=== PATIENT | male | born 1945 | race Caucasian/White ===

== ENCOUNTER 2016-10-19 05:41 | Inpatient (IN) | payer OTHER ==
[~2016-10-19] VITALS: Ht 188 cm; Wt 130.2 kg
[2016-10-19] MEDS ORDERED: FURO-149 PO (06:45)
[2016-10-19] MEDS ORDERED: LISI-600 PO (06:45)
[2016-10-19] MEDS ORDERED: VITD2000 PO (06:45)
[2016-10-19] MEDS ORDERED: RANI-362 PO (06:45)
[2016-10-19] MEDS ORDERED: CEFAZOLIN SOD 1 GM/ ISO 50 ML PREMIX IV ONE (07:00)
[2016-10-19] MEDS ORDERED: ONDANSETRON HCL 4 MG/2 ML VIAL IVP ONE (07:01)
[2016-10-19] MEDS ORDERED: METOPROLOL TARTRATE 5 MG/5 ML VIAL IVP ONE (07:01)
[2016-10-19] MEDS ORDERED: KETOROLAC TROMETHAMINE 30 MG VIAL IVP ONE (07:01)
[2016-10-19] MEDS ORDERED: SEVOFLURANE 15 MIN GAS INH ONE (07:01)
[2016-10-19] MEDS ORDERED: MIDAZOLAM HCL 5 MG/5 ML VIAL IVP ONE (07:01)
[2016-10-19] MEDS ORDERED: TRANEXAMIC ACID 1,000 MG/10 ML VIAL IV ONE (07:01)
[2016-10-19] MEDS ORDERED: PROPOFOL 200MG/ 20ML VIAL (DIPRIVAN) IV ONE (07:01)
[2016-10-19] MEDS ORDERED: LIDOCAINE 2%, 20 ML MDV INJ ONE (07:01)
[2016-10-19] MEDS ORDERED: ROPIVACAINE 40 MG/20 ML AMP EP ONE (07:01)
[2016-10-19] MEDS ORDERED: fentaNYL CITRATE/PF 100 MCG/2 ML AMP IVP ONE (07:01)
[2016-10-19] MEDS ORDERED: NS 100 ML BAG IV ONE (07:01)
[2016-10-19] MEDS ORDERED: LR 1,000 ML IV.SOLN IV ONE (07:01)
[2016-10-19] MEDS ORDERED: POLYMYXIN 500,000/BACIT.10,000 UNITS in NS IRR 1 L IR ONE (07:14)
[2016-10-19] MEDS ORDERED: LR 1,000 ML IV SCH (07:41)
[2016-10-19] MEDS ORDERED: NALBUPHINE HCL 10 MG/ML AMP IVP PRN (07:45)
[2016-10-19] MEDS ORDERED: HYDROmorphone 2 MG/ML VIAL IVP PRN ×2 (07:45)
[2016-10-19] MEDS ORDERED: MEPERIDINE HCL/PF 25 MG/ML DISP.SYRIN IVP PRN ×2 (07:45)
[2016-10-19] MEDS ORDERED: HYDROmorphone 1 MG INJ. 1 MG/ML AMPUL IVP PRN ×2 (07:45)
[2016-10-19] MEDS ORDERED: ONDANSETRON HCL 4 MG/2 ML VIAL IVP PRN ×2 (07:45)
[2016-10-19] MEDS ORDERED: DIPHENHYDRAMINE INJ 50 MG/ML VIAL IVP PRN (07:45)
[2016-10-19] MEDS ORDERED: ROPIVACAINE 0.2% 100 ML ONE ×2 (08:07→09:36)
[2016-10-19] MEDS ORDERED: D5/0.45 NS 1,000 ML IV ONE (09:12)
[2016-10-19] MEDS ORDERED: BISACODYL 10 MG/SUPPOSITORY RC PRN (09:15)
[2016-10-19] MEDS ORDERED: MORPHINE SULFATE 10 MG/ML VIAL IM PRN (09:15)
[2016-10-19] MEDS ORDERED: HYDROcodone/ACETAMIN 7.5-325 MG TAB PO PRN (09:15)
[2016-10-19] MEDS ORDERED: HYDROmorphone 2 MG/ML VIAL ONE (09:45)
[2016-10-19 10:25] VITALS: BP 122/74; PULSE 48; RESP 16; TEMP 98.6; O2SAT 98
--- NOTE | 2016-10-19 10:25 | NUR ---
Initial Note Received pt in bed, no s/s of distress or sob noted, pt has pain, 7/10, senior production planner started by recovery nurse and witnessed by nurse, at prescribed settings. Pt has a naropin as ordered, continuous nerve block. Pt aaox4, verbal, drowsy but easily aroused. Pt able to move toes on left foot, sensation present, capillary refill less than 3 seconds, pulse palpable, no paralysis or tingling per pt, dressing on left knee clean and dry, intact. Pt has polar care in place, elpidio for bed mobility. Educated pt on use of incentive spirometer, pt to use 10 times an hour while awake, pt verbalized understanding, pt at 2000ml. Bed at lowest position, call light within, will continue to monitor pt for any changes. Fall precautions in place.
[2016-10-19 10:30] VITALS: BP 122/74; PULSE 53; RESP 19; TEMP 97.4; O2SAT 96
--- NOTE | 2016-10-19 11:06 | NUR ---
CONSULTATION: REASON FOR CONSULT: MEDICAL CUSTOMER SUPPLY COORDINATOR PHYSICIAN: MAYRA THORNE MD ORDERED BY: KEVIN PAGE MD SPOKE WITH HOSEA
[2016-10-19] MEDS ORDERED: NALOXONE HCL 0.4 MG/ML AMP (NARCAN) IVP PRN (11:30)
--- NOTE | 2016-10-19 12:55 | NUR ---
ROUNDS Pt in bed, no s/s of distress or sob noted, pt has no c/o pain at this time, pt in stable condition, pt resting comfortably, will continue to monitor pt for any changes.
[2016-10-19] MEDS ORDERED: FAMOTIDINE 20 MG TABLET PO ONE (13:00)
[2016-10-19] MEDS: CEFAZOLIN 1 GM IVPB PREMIX 50 ML IV SCH ×2 (13:14→20:58)
--- NOTE | 2016-10-19 14:25 | NUR ---
Neurovascular Check Pt able to move toes on left foot, sensation present, capillary refill less than 3 seconds, pulse palpable, no paralysis or tingling per pt, dressing on left knee clean and dry, intact.
[2016-10-19 15:37] VITALS: BP 121/72; PULSE 79; RESP 17; TEMP 99; O2SAT 97
[2016-10-19 16:35] VITALS: TEMP 98.2
--- NOTE | 2016-10-19 18:38 | NUR ---
Closing Note Pt in bed, no s/s of distress or sob noted, pt has no c/o pain, paper tube cutter at prescribed settings. Pt has a naropin as ordered, continuous nerve block. Pt aaox4, verbal. Pt able to move toes on left foot, sensation present, capillary refill less than 3 seconds, pulse palpable, no paralysis or tingling per pt, dressing on left knee clean and dry, intact. Pt has polar care in place, trapeze for bed mobility. Bed at lowest position, call light within, will endorse care of pt to incoming nurse. Fall precautions in place. F/C draining via gravity. Pt has a hemovac on left knee to suction.
--- NOTE | 2016-10-19 19:23 | NUR ---
Initial Note Patient in bed at this time resting, respirations even and unlabored. is at the bedside. Patient denies any pain or discomfort at this time. No acute distress noted at this time. Nuero check done on left lower extremity, WNL. Capillary refill WNL. Denies any numbness or tingling. Patient is alert and oriented. Educated patient on incentive spirometer, patient able to show proper demonstration. Educated on using as least ten times per hour while awake, verbalized understanding. Fall and safety precautions in place. Call light in hand. Will continue to monitor.
[2016-10-19 20:31] VITALS: BP 128/86; PULSE 80; RESP 18; TEMP 99.1; O2SAT 98
[2016-10-19] MEDS: ROPIVACAINE 0.2% 100 ML INJ SCH (20:59)
--- NOTE | 2016-10-19 22:05 | NUR ---
RN ROUNDS Patient in bed at this time resting, respirations even and unlabored. Patient states that pain is being well controlled with SHODDY MILL WORKER. Call light in hand, fall and safety precautions in place. Will continue to monitor.
--- NOTE | 2016-10-20 00:45 | NUR ---
RN ROUNDS Patient in bed at this time resting, respirations even and unlabored. No acute distress noted at this time. Patient states pain is being well controlled with TAX SERVICES PROFESSIONAL pump. Call light in hand. Fall and safety precautions in place. Will continue to monitor. Addendum: 10/20/16 at 0046 by Karena Landis RN Nuero check done on left lower extremity, WNL. Capillary refill WNL. Denies any numbness or tingling.
[2016-10-20 00:49] VITALS: BP 126/61; PULSE 63; RESP 17; TEMP 98.3; O2SAT 97
--- NOTE | 2016-10-20 02:28 | NUR ---
RN ROUNDS Patient in bed at this time resting, respirations even and unlabored. No acute distress noted at this time. Changed ICE in polar care Patient denies any pain or discomfort at this time. Call light in hand. Fall and safety precautions in place. Will continue to monitor.
--- NOTE | 2016-10-20 04:25 | NUR ---
RN ROUNDS Patient in bed at this time resting, respirations even and unlabored. No acute distress noted at this time.Patient in no apparent pain or discomfort at this time. Call light in hand. Fall and safety precautions in place. Will continue to monitor.
[2016-10-20 05:02] VITALS: BP 140/71; PULSE 67; RESP 17; TEMP 98.1; O2SAT 100
--- NOTE | 2016-10-20 06:32 | NUR ---
Closing Note Patient in bed at this time resting, patient denies any pain or discomfort at this time. Neuro check done and WNL. Denies any numbness or tingling. All due meds given, all needs met. Call light in hand. Fall and safety precautions in place. Will endorse to day shift nurse.
[2016-10-20 06:48] LABS: BASOPHILS # (AUTO) 0.3 K/uL (0.0-0.2); BASOPHILS % (AUTO) 1.6 % (0.0-2.0); EOSINOPHILS % (AUTO) 0.2 % (0.0-4.0); HEMATOCRIT 37.2 % (36-54); HEMOGLOBIN 12.5 g/dL (14.0-18.0); LYMPHOCYTES # (AUTO) 1.6 K/uL (1.0-5.5); MEAN CORPUSCULAR HEMOGLOBIN 32 pg (27-31); MEAN CORPUSCULAR HGB CONC 34 % (32-36); MEAN CORPUSCULAR VOLUME 96 fL (79.0-98.0); MONOCYTES # (AUTO) 1.6 K/uL (0.0-1.0); MONOCYTES % (AUTO) 9.9 % (1.7-9.3); NEUTROPHILS # (AUTO) 12.9 K/uL (1.8-7.7); NEUTROPHILS % (AUTO) 78.3 % (40.0-70.0); PLATELET COUNT (AUTO) 201 K/uL (130-430); RED BLOOD CELL COUNT(AUTO) 3.86 MIL/uL (4.2-6.2); RED CELL DISTRIBUTION WIDTH 12.8 % (9.0-15.0); WHITE BLOOD COUNT (AUTO) 16.4 K/uL (4.8-10.8)
[2016-10-20 06:59] LABS: ALBUMIN 3.1 g/dL (3.4-4.8); CALCIUM 8.4 mg/dL (8.4-11.0); CREATININE 1.2 mg/dL (0.55-1.30); POTASSIUM 4.3 mmol/L (3.5-5.1); TOTAL BILIRUBIN 0.4 mg/dL (0.0-1.0); TOTAL PROTEIN, SERUM 6.4 g/dL (6.4-8.3)
[2016-10-20 07:19] VITALS: BP 145/77; PULSE 62; RESP 17; TEMP 98.6; O2SAT 99
--- NOTE | 2016-10-20 07:19 | NUR ---
Initial Note Received pt in bed, no s/s of distress or sob noted, pt has a section crews activities clerk at prescribed settings. Pt has a naropin as ordered, continuous nerve block. Pt aaox4, verbal. Pt able to move toes on left foot, sensation present, capillary refill less than 3 seconds, pulse palpable, no paralysis or tingling per pt, dressing on left knee clean and dry, intact. Pt has polar care in place, trapeze for bed mobility. Educated pt on use of incentive spirometer, pt to use 10 times an hour while awake, pt verbalized understanding, pt at 2000ml. Bed at lowest position, call light within, will continue to monitor pt for any changes. Fall precautions in place.
[2016-10-20] MEDS: FAMOTIDINE 20 MG TABLET PO SCH (08:35)
[2016-10-20] MEDS: RIVAROXABAN 10 MG TABLET PO SCH (08:35)
[2016-10-20] MEDS: FUROSEMIDE 40 MG TABLET PO SCH (08:35)
[2016-10-20] MEDS: LISINOPRIL 20 MG TABLET PO SCH (08:36)
[2016-10-20] MEDS ORDERED: NON-FORMULARY MEDICATION (Ranitidine Hcl (Acid Reducer 150) 1 TAB) PO SCH (09:00)
--- NOTE | 2016-10-20 09:04 | NUR ---
Nutrition Update Kamari Scale 17 noted. Pt admitted for unilateral primary osteoarthritis, L knee. Diet: regular BMI: 36.8 kg/m2 RD to follow per nutrition care standards.
[2016-10-20] MEDS: ROPIVACAINE 0.2% 100 ML INJ SCH (09:48)
[2016-10-20] MEDS: HYDROMORPHONE PCA 10 mg/50 mL IV PRN (09:51)
--- NOTE | 2016-10-20 10:08 | NUR ---
ROUNDS Pt sitting up in chair, no s/s of distress or sob noted, pt has no c/o pain at this time, pt in stable condition, pt talking to at bedside, will continue to monitor pt for any changes.
[2016-10-20 11:25] VITALS: BP 127/72; PULSE 79; RESP 19; TEMP 98.4; O2SAT 96
--- NOTE | 2016-10-20 12:55 | NUR ---
ROUNDS Pt laying in bed, no s/s of distress or sob noted, pt has no c/o pain at this time, pt in stable condition, pt talking to at bedside, will continue to monitor pt for any changes.
--- NOTE | 2016-10-20 14:25 | NUR ---
ROUNDS Pt laying in bed, no s/s of distress or sob noted, pt has no c/o pain at this time, pt in stable condition, pt resting comfortably, will continue to monitor pt for any changes.
[2016-10-20 15:20] VITALS: BP 146/97; PULSE 101; RESP 19; TEMP 97.2; O2SAT 93
--- NOTE | 2016-10-20 18:04 | NUR ---
Closing Note Pt in bed, no s/s of distress or sob noted, pt has no c/o pain, licensed bondsman at prescribed settings. Pt has a naropin as ordered, continuous nerve block. Pt aaox4, verbal. Pt able to move toes on left foot, sensation present, capillary refill less than 3 seconds, pulse palpable, no paralysis or tingling per pt, dressing on left knee clean and dry, intact. Pt has polar care in place, trapeze for bed mobility. Bed at lowest position, call light within, will endorse care of pt to incoming nurse. Fall precautions in place. F/C draining via gravity. Pt has CMP and to be removed at 1030 pm.
--- NOTE | 2016-10-20 19:34 | NUR ---
PM ASSESSMENT PT. A/OX4, VITAL SIGNS STABLE, NO DISTRESS NOTED, DENIES PAIN, NOTED WITH LEFT LOWER EXTREMITY IN CPM MACHINE WITH [facility], UPDATED WITH PLAN OF CARE, ENCOURAGED PT. TO USE CALL LIGHT FOR ASSISTANCE, CALL LIGHT WITHIN REACH, WILL CONTINUE TO MONITOR.
[2016-10-20 19:35] VITALS: BP 146/72; PULSE 101; RESP 18; TEMP 99; O2SAT 97
--- NOTE | 2016-10-20 20:00 | NUR ---
NEURO CHECKS BILATERAL PEDAL PULSES PRESENT, PT. ABLE TO WIGGLE TOES, PT. ABLE TO FLEX AND EXTEND FEET BILATERALLY, DENIES NUMBNESS OR TINGLING. WILL CONTINUE TO MONITOR.
--- NOTE | 2016-10-20 20:30 | NUR ---
INCENTIVE SPIROMETER PT. ABLE TO DEMONSTRATE PROPER USE OF INCENTIVE SPIROMETER, UP TO 3000 ML. INSTRUCTED PT. TO USE I.S. 10X/HR WHILE AWAKE, PT. VERBALIZED UNDERSTANDING.
[2016-10-20] MEDS: ACETAMINOPHEN 325 MG TABLET PO PRN (21:31)
--- NOTE | 2016-10-20 21:31 | NUR ---
FEVER TEMP IS 100.0, TYLENOL 650 MG PO GIVEN, COOLING MEASURES TAKEN. WILL CONTINUE TO MONITOR.
--- NOTE | 2016-10-20 22:00 | NUR ---
GREENKEEPER DILAUDID PT. C/O SEVERE PAIN RATED "10/10", INSTRUCTED PT. TO PRESS GREENKEEPER BUTTON FOR PAIN MEDICATION, PT. STATED, HE DID NOT UNDERSTAND HOW TO USE GREENKEEPER DILAUDID, RE-EDUCATION PROVIDED, ALSO REMINDED PT. HE IS ON ROPIVICANE AT 8 ML/HR, PT. VERBALIZED UNDERSTANDING.
--- NOTE | 2016-10-20 22:25 | NUR ---
PAIN REASSESSMENT PT. DENIES PAIN AT THIS TIME, AND STATED "I FEEL MUCH BETTER." VITAL SIGNS STABLE, CALL LIGHT WITHIN REACH, WILL CONTINUE TO MONITOR.
--- NOTE | 2016-10-20 22:30 | NUR ---
TEMP REASSESSMENT CURRENT TEMPERATURE IS 98.7, WILL CONTINUE TO MONITOR.
[2016-10-21] VITALS: BP 135/79; PULSE 105; RESP 18; TEMP 99.6; O2SAT 100
--- NOTE | 2016-10-21 | NUR ---
BED CHANCE PT. STATED HE WANTED TO HAVE A BOWEL MOVEMENT, ATTEMPTED TO AMBULATE PT. TO THE BATHROOM WITH WALKER, BUT PT. UNABLE TO TOLERATE ACTIVITY AND STATED HE "FELT DIZZY." ASSISTED BACK INTO BED, BED CHANCE PLACED.
--- NOTE | 2016-10-21 00:30 | NUR ---
RN ROUNDS PT. RESTING QUIETLY, VITAL SIGNS STABLE, NO DISTRESS NOTED, DENIES PAIN. CALL LIGHT WITHIN REACH. WILL CONTINUE TO MONITOR.
[2016-10-21] MEDS: ROPIVACAINE 0.2% 100 ML INJ SCH ×2 (00:37→07:30)
--- NOTE | 2016-10-21 02:00 | NUR ---
RN ROUNDS PT. RESTING QUIETLY, VITAL SIGNS STABLE, NO DISTRESS NOTED, DENIES PAIN. REPOSITIONED WITH PILLOW SUPPORT, CALL LIGHT WITHIN REACH. WILL CONTINUE TO MONITOR.
--- NOTE | 2016-10-21 04:00 | NUR ---
RN ROUNDS PT. RESTING QUIETLY, VITAL SIGNS STABLE, NO DISTRESS NOTED, DENIES PAIN. REPOSITIONED WITH PILLOW SUPPORT, CALL LIGHT WITHIN REACH. WILL CONTINUE TO MONITOR.
[2016-10-21 04:55] VITALS: BP 130/79; PULSE 102; RESP 19; TEMP 99.1; O2SAT 96
--- NOTE | 2016-10-21 06:38 | NUR ---
NOWAK D/C'ED, ATTEMPTED AMBULATION D/C'ED NOWAK CATHETER, NOTED WITH 450 CC YELLOW URINE, PT. STATED HE WANTED TO ATTEMPT TO HAVE A BOWEL MOVEMENT,AND WOULD LIKE TO "TRY TO WALK TO THE BATHROOM", ATTEMPTED TO AMBULATE PT. TO THE BATHROOM WITH WALKER AGAIN, BUT PT. UNABLE TO TOLERATE ACTIVITY DUE TO PAIN. ASSISTED BACK INTO BED, PT. STATED HE "WILL TRY TO HAVE A BOWEL MOVEMENT LATER."
[2016-10-21 06:48] LABS: HEMOGLOBIN 12.3 g/dL (14.0-18.0); MEAN CORPUSCULAR HEMOGLOBIN 33 pg (27-31); MEAN CORPUSCULAR HGB CONC 34 % (32-36); MEAN CORPUSCULAR VOLUME 96 fL (79.0-98.0); PLATELET COUNT (AUTO) 217 K/uL (130-430); RED BLOOD CELL COUNT(AUTO) 3.74 MIL/uL (4.2-6.2); RED CELL DISTRIBUTION WIDTH 13.5 % (9.0-15.0)
--- NOTE | 2016-10-21 07:30 | NUR ---
AM Rounds Patient is awake and alert and oriented x 4. Denies pain at this time. Educated patient on pain management, Assessment complete. Surgical dressing noted on left knee; dry and intact. Educated patient montessori lead teacher light system; patient verbalized understanding. Bed in lowest position, three side rails up; call light within patient's hand. Fall precautions in place.
[2016-10-21 08:00] VITALS: BP 156/75; PULSE 102; RESP 18; TEMP 100; O2SAT 96
[2016-10-21 08:31] LABS: ATYPICAL LYMPHOCYTES % 0 % (0-0); BAND % (MANUAL) 0 % (0-6); BASOPHILS % (MANUAL) 0 % (0-2); EOSINOPHILS % (MANUAL) 0 % (0-7); LYMPHOCYTES % (MANUAL) 9 % (20-46); MONOCYTES % (MANUAL) 10 % (0-11)
--- NOTE | 2016-10-21 08:40 | NUR ---
Medication Medications given to patient' educated patient on potential side effects; patient verbalized understanding. Fall precautions in place.
[2016-10-21] MEDS: LISINOPRIL 20 MG TABLET PO SCH (09:06)
[2016-10-21] MEDS: FUROSEMIDE 40 MG TABLET PO SCH (09:06)
[2016-10-21] MEDS: ACETAMINOPHEN 325 MG TABLET PO PRN ×2 (09:07→20:43)
[2016-10-21] MEDS: FAMOTIDINE 20 MG TABLET PO SCH (09:07)
[2016-10-21] MEDS: RIVAROXABAN 10 MG TABLET PO SCH (09:07)
--- NOTE | 2016-10-21 10:45 | NUR ---
RN ROUNDS Patient is resting in bed; no complaints of pain, no signs of distress, Instructed patient to use call villagran if assistance is needed. Call villagran within reach, bed in low position, side rails up, fall precautions in place. Will continue to monitor
--- NOTE | 2016-10-21 12:00 | NUR ---
RN ROUNDS Patient is currently up with PT; patient tolerated well.
[2016-10-21 12:13] VITALS: BP 120/67; PULSE 56; RESP 19; TEMP 98; O2SAT 100
[2016-10-21] MEDS: cefTRIAXone 1 GM IVPB PREMIX 50 ML IV SCH (13:00)
--- NOTE | 2016-10-21 13:44 | NUR ---
KONSTANTIN NOTIFIED PHARMACY REGARDING 1300 ROCEPHIN FOR THE PATIENT, SPOKE WITH MADELINE, STATED THAT ROCEPHIN NEEDS TO BE MADE, WILL FOLLOW UP.
--- NOTE | 2016-10-21 14:00 | NUR ---
RN ROUNDS Changed patient's tele-monitor batteries. Patient is currently resting in bed; no complaints of pain at this time. Instructed patient to use call light when assistance is needed. Bed in lowest position, side rails up, fall precautions in place. Will continue to monitor patient.
--- NOTE | 2016-10-21 14:56 | NUR ---
HCP/PA: Home Health arranged with [phone]
[2016-10-21 16:28] VITALS: BP 135/72; PULSE 95; RESP 20; TEMP 99.1; O2SAT 98
[2016-10-21] MEDS: HYDROMORPHONE PCA 10 mg/50 mL IV PRN (16:31)
--- NOTE | 2016-10-21 16:38 | NUR ---
RN ROUNDS Patient is currently resting in bed watching TV, is at bedside. Patient is not complaining of any pain, no signs of distress. Bed in lowest position. three side rails up, fall precautions initiated. Will continue to monitor
--- NOTE | 2016-10-21 18:00 | NUR ---
PHYSICAL THERAPY CO-SIGN The Physical Therapy Progress Notes documented by Customer Relations Advisor have been reviewed. I CONCUR WITH AM/PM OWNER NOTE; CONT PER TX PLAN Reviewed/Co-Signed by: Janelle Lucero PT Documentation Done by: FRANSISCO PHILLIPS OWNER Addendum: 10/22/16 at 1534 by Janelle Lucero PT Amended: Links added.
--- NOTE | 2016-10-21 18:29 | NUR ---
CLOSING NOTE Will give report to night nurse nurse. Patient is currently stable, no signs of distress, no complaints of pain. Patient's bed is currently in the lowest position; three side rails up, fall precaution in place, call light next to patient. Informed patient to call if assistance is needed. All needs met.
[2016-10-21 19:45] VITALS: BP 125/66; PULSE 108; RESP 18; TEMP 100; O2SAT 96
--- NOTE | 2016-10-21 19:45 | NUR ---
PM ASSESSMENT PT. A/OX4, TEMP 100.0, TYLENOL 650 MG PO TO BE GIVEN, COOLING MEASURES TAKEN, ENCOURAGED USE OF INCENTIVE SPIROMETER 10X/HR WHILE AWAKE, PT. ABLE TO DEMONSTRATE PROPER USE UP TO 4000 ML. NOTED WITH POLAR CARE TO LEFT LOWER EXTREMITY, LEFT LOWER EXTREMITY SUPPORTED WITH PILLOW. NOTED WITH SCD TO RIGHT LOWER EXTREMITY. UPDATED WITH PLAN OF CARE, ENCOURAGED PT. TO USE CALL LIGHT FOR ASSISTANCE, CALL LIGHT WITHIN REACH.
--- NOTE | 2016-10-21 21:30 | NUR ---
RN ROUNDS TEMP IS 99.1, VITAL SIGNS STABLE, NO DISTRESS NOTED, DENIES PAIN, REPOSITIONED WITH PILLOW SUPPORT, CALL LIGHT WITHIN REACH, WILL CONTINUE TO MONITOR.
--- NOTE | 2016-10-21 22:30 | NUR ---
RN ROUNDS PT. RESTING QUIETLY, VITAL SIGNS STABLE, NO DISTRESS NOTED, DENIES PAIN, CALL LIGHT WITHIN REACH, WILL CONTINUE TO MONITOR.
[2016-10-22 00:12] VITALS: BP 119/54; PULSE 98; RESP 19; TEMP 99.8; O2SAT 97
--- NOTE | 2016-10-22 00:30 | NUR ---
RN ROUNDS PT. RESTING QUIETLY, VITAL SIGNS STABLE, NO DISTRESS NOTED, DENIES PAIN, REPOSITIONED WITH PILLOW SUPPORT, CALL LIGHT WITHIN REACH, WILL CONTINUE TO MONITOR.
--- NOTE | 2016-10-22 02:00 | NUR ---
RN ROUNDS PT. RESTING QUIETLY, VITAL SIGNS STABLE, NO DISTRESS NOTED, DENIES PAIN, REPOSITIONED WITH PILLOW SUPPORT, CALL LIGHT WITHIN REACH, WILL CONTINUE TO MONITOR.
[2016-10-22 04:00] VITALS: BP 133/59; PULSE 91; RESP 18; TEMP 97.6; O2SAT 95
--- NOTE | 2016-10-22 04:00 | NUR ---
RN ROUNDS PT. RESTING QUIETLY, VITAL SIGNS STABLE, NO DISTRESS NOTED, DENIES PAIN, REPOSITIONED WITH PILLOW SUPPORT, CALL LIGHT WITHIN REACH, WILL CONTINUE TO MONITOR.
--- NOTE | 2016-10-22 06:30 | NUR ---
CLOSING NOTES PT. RESTING QUIETLY, VITAL SIGNS STABLE, PT. IS AFEBRILE, TEMPERATURE IS 97.1, NO DISTRESS NOTED, DENIES PAIN, REPOSITIONED WITH PILLOW SUPPORT, CALL LIGHT WITHIN REACH.
[2016-10-22 06:46] LABS: BASOPHILS # (AUTO) 0.2 K/uL (0.0-0.2); BASOPHILS % (AUTO) 1.7 % (0.0-2.0); EOSINOPHILS # (AUTO) 0.1 K/uL (0.0-0.4); HEMATOCRIT 34.1 % (36-54); HEMOGLOBIN 11.5 g/dL (14.0-18.0); LYMPHOCYTES # (AUTO) 1.3 K/uL (1.0-5.5); LYMPHOCYTES % (AUTO) 9.3 % (20.5-51.5); MEAN CORPUSCULAR HEMOGLOBIN 33 pg (27-31); MEAN CORPUSCULAR HGB CONC 34 % (32-36); MEAN CORPUSCULAR VOLUME 96 fL (79.0-98.0); MONOCYTES # (AUTO) 1.5 K/uL (0.0-1.0); NEUTROPHILS # (AUTO) 11.4 K/uL (1.8-7.7); PLATELET COUNT (AUTO) 232 K/uL (130-430); RED BLOOD CELL COUNT(AUTO) 3.54 MIL/uL (4.2-6.2); RED CELL DISTRIBUTION WIDTH 13.7 % (9.0-15.0); WHITE BLOOD COUNT (AUTO) 14.5 K/uL (4.8-10.8)
--- NOTE | 2016-10-22 07:20 | NUR ---
AM ROUNDS: PATIENT ON THE BED.REPORT GIVEN BY FELIX NIGHT NURSE.ON O2 2L/NC,GOOD SATURATION.AWAKE,ALERT AND ORIENTED X3. WITH IVF TKO TOGETHER WITH ORTHOTIC AND PROSTHETIC TECHNICIAN DILAUDID ,SEE MEDITECH FOR DOSAGES. WITH LEFT KNEE DRESSING DRY AND INTACT. NO COMPLAINED MADE. CALL LIGHT WITH IN REACH.NEEDS ATTENDED TO.
--- NOTE | 2016-10-22 08:20 | NUR ---
surgeon rounds: dr austin came,removed the dressing from the left knee,no active bleeding noted,to keep it open to air,if with discharges ,covered it wih 4x4 dressing per surgeon. dc polar care per surgeon.with joseph at left knee intact.
[2016-10-22 08:26] VITALS: BP 145/77; PULSE 109; RESP 20; TEMP 99.2; O2SAT 94
[2016-10-22] MEDS: RIVAROXABAN 10 MG TABLET PO SCH (08:34)
[2016-10-22] MEDS: FAMOTIDINE 20 MG TABLET PO SCH (08:35)
[2016-10-22] MEDS: FUROSEMIDE 40 MG TABLET PO SCH (08:35)
[2016-10-22] MEDS: LISINOPRIL 20 MG TABLET PO SCH (08:35)
--- NOTE | 2016-10-22 10:15 | NUR ---
rounds: sitting on the chair.physical therapist working with the patient.
[2016-10-22 12:02] VITALS: BP 95/58; PULSE 102; RESP 20; TEMP 98.8; O2SAT 94
--- NOTE | 2016-10-22 12:20 | NUR ---
rounds: patient on the bed.cpm on at left knee, off while having lunch. no complained made.
[2016-10-22] MEDS: cefTRIAXone 1 GM IVPB PREMIX 50 ML IV SCH (12:46)
--- NOTE | 2016-10-22 12:57 | NUR ---
md rounds: patient seen by dr hadley with orders dc home with home health arranged by [facility] hcp case mgt,instructions given to patient and ,verbalized understanding.with prescriptions ordered by dr hadley,attached to chart.f/u with pcp and orthopedic as ordered.
--- NOTE | 2016-10-22 13:10 | NUR ---
tester electronic scale dilaudid: dc tester electronic scale dialudid as ordered by dr hadley.resting. no complained made.
--- NOTE | 2016-10-22 13:22 | NUR ---
KAMARI SCALE EVALUATION: Patient evaluated for a low Kamari score of 16. Patient was awake, alert, oriented and received in a Arlet bed with an Atmos-Air 9000 mattress. Patient is unable to turn independently secondary to recent Left Total Knee Replacement. Skin is fair (+). Recommend encourage and assist patient as needed with repositioning side to side every 2 hours with pillow support and off-load pressure areas with pillows for pressure re-distribution. Elevate, off-load and float bilateral heels with pillows. Use moisture barrier cream on buttocks and other moisture susceptible areas QID and as needed for soiling. Perform skin care and monitor skin integrity Q shift.
--- NOTE | 2016-10-22 14:20 | NUR ---
rounds: patient resting. cpm on. no distress.
--- NOTE | 2016-10-22 15:31 | NUR ---
PHYSICAL THERAPY CO-SIGN The Physical Therapy Progress Notes documented by Hardening Machine Operator have been reviewed. I CONCUR WITH AM/PM LINUX SYSTEM ENGINEER NOTE; CONT PER TX PLAN Reviewed/Co-Signed by: Janelle Lucero PT Documentation Done by: FRANSISCO PHILLIPS LINUX SYSTEM ENGINEER Addendum: 10/22/16 at 1532 by Janelle Lucero PT Amended: Links added.
[2016-10-22 16:30] VITALS: BP 123/71; PULSE 103; RESP 20; TEMP 98.6; O2SAT 96
--- NOTE | 2016-10-22 16:30 | NUR ---
rounds: stable. left knee incision dry and intact. at bedside.
--- NOTE | 2016-10-22 16:50 | NUR ---
cpm: patient refused cpm back to his left knee surgery.
[2016-10-22 17:54] VITALS: BP 123/71; PULSE 103; RESP 20; TEMP 98.6; O2SAT 96
[2016-10-22] MEDS ORDERED: RIVA10TA BC (18:06)
[2016-10-22] MEDS ORDERED: LISI-600 PO (18:08)
[2016-10-22] MEDS ORDERED: TRAM50TA92 PO ×2 (18:10→18:21)
--- NOTE | 2016-10-22 18:10 | NUR ---
meal: patient eating dinner. at bedside.
[2016-10-22] MEDS ORDERED: CEPH-568 PO ×2 (18:11→18:22)
[2016-10-22] MEDS ORDERED: LISI10TA5 PO (18:19)
[2016-10-22] MEDS ORDERED: RIVA10TA PO (18:20)
--- NOTE | 2016-10-22 19:15 | NUR ---
dc notes: transitional care and prescription given to patient. patient verbalized understanding of instructions. iv removed,dry gauze applied,no bleeding noted on the site. patient accompanied home by his in stable condition.
--- NOTE | 2016-10-26 16:06 | NUR ---
Discharge Follow Up Phone Call FUEL AGENT phoned patient, . Patient stated he was not doing well because his hospital bed had not been delivered yet. It was due 10/23/16 then today but still has not arrived. He has been in contact with PA pillowcase sewer Adelaida and Bethany and they are working with him. Patient stated he has stairs in the home and cannot use his CPM or rest comfortably on the couch. He has received the CPM and [facility] has begun services. He has a follow up appointment with Dr Chang scheduled as ordered. Patient has no other questions or concerns.
== END 2016-10-22 19:15 | disposition home health service (06) | DRG 470 ==
LOC: SMU 05:41 → STU 10:41
PROVIDERS: ADMIT Orthopaedic Surgery; ATTEND Orthopaedic Surgery
PROC: 0SRD0J9 Replacement of Left Knee Joint with Synthetic Substitute, Cemented, Open Approach (ICD-10-PCS; principal; 2016-10-19 07:30)
DX: M17.12 Unilateral primary osteoarthritis, left knee (principal); J98.11 Atelectasis; I10 Essential (primary) hypertension; G89.29 Other chronic pain; D72.829 Elevated white blood cell count, unspecified; Z98.84 Bariatric surgery status; Z95.4 Presence of other heart-valve replacement; Z86.718 Personal history of other venous thrombosis and embolism
CPT/HCPCS: 36415; 71010; 80053; 85007; 85025; 85027; 87081; 88305; 88311; 97039; 97110-GP; 97116-GP; 97530-GP; C1713; C1776; J0690; J0696; J1170; J1885; J2001; J2250; J2270; J2405; J2704; J2795; J3010; J3490; J7120